=== PATIENT | female | born 1965 | race Hispanic/Latino ===

== ENCOUNTER → 2020-02-17 | Day surgery (SDC) | payer BC ==
[~2020-02-17] MED LIST: CLARITIN-D 241 EACH PO; ESTROGEN PO; FENTANYL CITRATE/PF 100MCG/2 ML INJ ONE; FISH OIL PO; GLUCAGON FOR INJ 1 MG VIAL ONE; HYOSCYAMINE 0.125 MG TAB ONE; LIDOCAINE HCL 2% LOCAL INJ 5 ML SDV VIAL INJ ONE; LISINOPRIL5 MG PO; MIDAZOLAM HCL 2 MG/2 ML VIAL ONE; PROPOFOL IV EMULSION 10 MG/ML 20 ML VIAL ONE
[2020-02-17 15:45] VITALS: BP 120/80
--- NOTE | 2020-02-17 18:38 | Operative Report ---
DATE OF PROCEDURE: 02/17/2020 SURGEON: Kody Yeboah MD PROCEDURES: EGD with polypectomy and biopsies and colonoscopy. INDICATIONS FOR EGD: Upper abdominal pain, bloating. INDICATIONS FOR COLONOSCOPY: Surveillance colonoscopy, personal history of colon polyps. MEDICATIONS: The patient was done under MAC, please see anesthesiologist's note. PROCEDURE IN DETAIL: With the patient in the left lateral decubitus position, a flexible fiberoptic Olympus gastroscope was introduced into the esophagus under direct visualization without any difficulty. There was some patchy erythema noted in distal esophagus. The scope was then advanced with ease into the stomach. Mucosa overlying the antrum and the body revealed some patchy erythema and [id number] edema, and biopsies were obtained and sent to stain for H. pylori. Several hyperplastic-appearing polyps were noted in the body of the stomach, some were partially excised with cold biopsy forceps. There was a minute submucosal nodule in the proximal body along the posterior wall and that was biopsied. Pylorus was of normal contour and shape, was intubated with ease and the scope was advanced all the way to the second portion of the duodenum. The scope was then withdrawn slowly. Biopsies were obtained from the proximal second portion and the duodenal bulb to rule out sprue. The scope was then withdrawn back into the stomach and retroflexed, and mucosa overlying the fundus and the cardia appeared to be within normal limits. The scope was then straightened out, it was subsequently withdrawn, and the patient tolerated the procedure well. IMPRESSION: 1. Distal esophagitis. 2. Gastritis, biopsied, biopsies sent to stain for Helicobacter pylori. 3. Gastric polyps, body, hyperplastic-appearing, some partially excised with the cold biopsy forceps. 4. Submucosal nodule, proximal body, posterior wall, biopsied. 5. Rule out sprue. PLAN: Follow up histology. Initiate Protonix 40 mg one p.o. q.a.m. before meals. The patient was then turned around and after adequate lubrication of the anal canal, a flexible fiberoptic Olympus colonoscope was inserted into the rectum with ease and advanced all the way to the cecum. It was then withdrawn slowly. Mucosa overlying the cecum, ascending colon, transverse colon, descending, sigmoid, and rectum appeared to be within normal limits. The scope was then retroflexed into the distal rectum and small internal hemorrhoids were noted, none of which was actively bleeding. The scope was then straightened out, it was subsequently withdrawn, and the patient tolerated the procedure well. IMPRESSION: Internal hemorrhoids, none actively bleeding. PLAN: Initiate high-fiber, low-fat diet. Initiate high-fiber supplement. The patient might benefit from a followup colonoscopy in 5 years. MD CHELLY Sprague/MODGill /[id number] cc: Dr. Zoila Leija
== END | disposition home or self-care (01) ==
LOC: OR 11:43
PROVIDERS: ATTEND Internal Medicine Gastroenterology
DX: K29.50 Unspecified chronic gastritis without bleeding (principal); Z86.010 Personal history of colon polyps; K31.7 Polyp of stomach and duodenum; K20.90 Esophagitis, unspecified without bleeding; K31.89 Other diseases of stomach and duodenum; K21.9 Gastro-esophageal reflux disease without esophagitis; K59.00 Constipation, unspecified; K64.8 Other hemorrhoids; Z01.810 Encounter for preprocedural cardiovascular examination; Z01.812 Encounter for preprocedural laboratory examination; Z20.828 Contact with and (suspected) exposure to other viral communicable diseases
CPT/HCPCS: 43239; 45378; 93005; J1610; J2001; J2250; J2704; J3010; U0002

== ENCOUNTER 2024-02-03 14:40 | Inpatient (IN) | payer BC ==
[~2024-02-03] VITALS: Ht 154.9 cm; Wt 56.2 kg
[2024-02-03 14:40] VITALS: TEMP 98
[~2024-02-03 14:40] MED LIST changes: -FENTANYL CITRATE/PF 100MCG/2 ML INJ ONE; -GLUCAGON FOR INJ 1 MG VIAL ONE; -HYOSCYAMINE 0.125 MG TAB ONE; -LIDOCAINE HCL 2% LOCAL INJ 5 ML SDV VIAL INJ ONE; -MIDAZOLAM HCL 2 MG/2 ML VIAL ONE; -PROPOFOL IV EMULSION 10 MG/ML 20 ML VIAL ONE
[2024-02-03] MEDS ORDERED: METOPROLOL TARTRATE INJ 1 MG/ML VIAL IV STA (15:07)
[2024-02-03] MEDS: DILTIAZEM HCL 5 MG/ML 5 ML VIAL IV STA (15:26)
[2024-02-03 15:36] LABS: BASOPHILS % 0.7 % (0.0-1.0); EOSINOPHILS # (AUTO) 0.2 (0.0-0.4); HEMATOCRIT 43.4 % (34.2-44.1); HEMOGLOBIN 13.4 g/dL (12.0-16.0); LYMPHOCYTES # (AUTO) 2.1 (1.0-3.2); LYMPHOCYTES % 36.7 % (18.0-39.1); MEAN CORPUSCULAR HEMOGLOBIN 29.4 pg (28-32); MEAN CORPUSCULAR HGB CONC 30.9 g/dL (31-35); MEAN CORPUSCULAR VOLUME 95.2 fL (81-99); MONOCYTES # (AUTO) 0.6 (0.2-0.8); MONOCYTES % 9.6 % (4.4-11.3); NEUTROPHILS # (AUTO) 2.9 (2.1-6.9); NEUTROPHILS % 49.7 % (38.7-80.0); PLATELET COUNT 339 x10e3/uL (140-360); RED BLOOD COUNT 4.56 x10e6/uL (3.6-5.1); RED CELL DISTRIBUTION WIDTH 13.5 % (11.7-14.4); WHITE BLOOD COUNT 5.75 x10e3/uL (4.8-10.8)
[2024-02-03] MEDS: DIGOXIN INJ 0.25 MG/ML 2 ML AMP IV STA (15:43)
[2024-02-03 16:01] LABS: ALBUMIN/GLOBULIN RATIO 1.1 (0.8-2.0); ANION GAP 15.8 mmol/L (8-16); BILIRUBIN,TOTAL 0.5 mg/dL (0.2-1.2); CALCIUM 9.6 mg/dL (8.4-10.2); CREATININE, SERUM 0.78 mg/dL (0.57-1.11); POTASSIUM 3.8 mmol/L (3.5-5.1); TOTAL PROTEIN 7.7 g/dL (6.5-8.1)
[2024-02-03] MEDS: SODIUM CHLORIDE 0.9% 1000ML 1,000 ML IV SCH (16:04)
[2024-02-03 16:08] LABS: TROPONIN I 0.001 ng/mL (0-0.300)
[2024-02-03 16:12] LABS: AMPHETAMINES SCREEN,URINE NEGATIVE (NEGATIVE); BENZODIAZEPINES SCREEN,URINE NEGATIVE (NEGATIVE); CANNABINOIDS SCREEN,URINE NEGATIVE (NEGATIVE); COCAINE SCREEN,URINE NEGATIVE (NEGATIVE); METHADONE SCREEN, URINE NEGATIVE (NEGATIVE); OPIATES SCREEN,URINE NEGATIVE (NEGATIVE); PHENCYCLIDINE SCREEN,URINE NEGATIVE (NEGATIVE)
[2024-02-03 16:48] VITALS: PULSE 87; RESP 18; O2SAT 98
[2024-02-03 21:30] VITALS: BP 120/69; PULSE 58; RESP 18; TEMP 97.7; O2SAT 98
[2024-02-03 21:33] VITALS: PULSE 64; RESP 17
[2024-02-03 22:40] VITALS: BP 120/69; PULSE 64; RESP 18; TEMP 97.7; O2SAT 98
[2024-02-03 22:51] VITALS: BP 120/69; PULSE 64; RESP 18; TEMP 97.7; O2SAT 98
[2024-02-03] MEDS ORDERED: CELECOXIB200 MG PO (23:12)
[2024-02-03] MEDS ORDERED: ALENDRONATE SOD70 MG PO (23:12)
[2024-02-04] VITALS (8 sets, daily range): BP systolic 116–131; BP diastolic 70–79; PULSE 58–65; RESP 18–21; TEMP 97.9–98.2; O2SAT 96–100
[2024-02-04 02:12] LABS: TROPONIN I 0.003 ng/mL (0-0.300)
[2024-02-04] MEDS: ENOXAPARIN SOD INJ 40 MG/0.4 ML SYR SC SCH (03:12)
[2024-02-04 05:16] LABS: BASOPHILS % 0.6 % (0.0-1.0); EOSINOPHILS # (AUTO) 0.2 (0.0-0.4); EOSINOPHILS % 3.6 % (0.0-6.0); HEMATOCRIT 37.7 % (34.2-44.1); HEMOGLOBIN 11.9 g/dL (12.0-16.0); LYMPHOCYTES # (AUTO) 2.1 (1.0-3.2); LYMPHOCYTES % 40.5 % (18.0-39.1); MEAN CORPUSCULAR HEMOGLOBIN 29.5 pg (28-32); MEAN CORPUSCULAR HGB CONC 31.6 g/dL (31-35); MEAN CORPUSCULAR VOLUME 93.3 fL (81-99); MONOCYTES # (AUTO) 0.5 (0.2-0.8); MONOCYTES % 9.2 % (4.4-11.3); NEUTROPHILS # (AUTO) 2.4 (2.1-6.9); NEUTROPHILS % 45.9 % (38.7-80.0); PLATELET COUNT 313 x10e3/uL (140-360); RED BLOOD COUNT 4.04 x10e6/uL (3.6-5.1); RED CELL DISTRIBUTION WIDTH 13.6 % (11.7-14.4); WHITE BLOOD COUNT 5.24 x10e3/uL (4.8-10.8)
[2024-02-04 05:51] LABS: ALBUMIN 3.3 g/dL (3.5-5.0); ALBUMIN/GLOBULIN RATIO 1.2 (0.8-2.0); ANION GAP 11.7 mmol/L (8-16); BILIRUBIN,TOTAL 0.5 mg/dL (0.2-1.2); CALCIUM 8.4 mg/dL (8.4-10.2); CREATININE, SERUM 0.74 mg/dL (0.57-1.11); POTASSIUM 3.7 mmol/L (3.5-5.1); TOTAL PROTEIN 6.1 g/dL (6.5-8.1)
[2024-02-04 06:21] LABS: TROPONIN I 0.003 ng/mL (0-0.300)
[2024-02-04] MEDS: ASPIRIN 81 MG CHEW TAB PO SCH (09:51)
[2024-02-04] MEDS: METOPROLOL TARTRATE 25 MG TAB PO SCH (09:51)
[2024-02-04 10:44] LABS: CHOL/HDL RATIO 5.4 (3.0-3.6)
[2024-02-04 10:58] LABS: THYROID STIMULATING HORMONE 1.063 uIU/mL (0.350-4.940)
[2024-02-04] MEDS: APIXABAN 5 MG TABLET PO SCH (12:33)
[2024-02-05] VITALS: BP 125/71; PULSE 62; RESP 18; TEMP 97.7; O2SAT 98
[2024-02-05 04:00] VITALS: BP 128/81; PULSE 63; RESP 18; TEMP 97.6; O2SAT 98
[2024-02-05 07:47] VITALS: BP 128/82; PULSE 73; RESP 20; TEMP 98.6; O2SAT 100
[2024-02-05 07:59] VITALS: BP 128/82; PULSE 73; RESP 20; TEMP 98.6; O2SAT 100
[2024-02-05] MEDS: ACETAMINOPHEN 325 MG TAB PO PRN (08:53)
[2024-02-05] MEDS ORDERED: AMIODARONE HCL 200 MG TAB PO SCH (11:30)
[2024-02-05 11:50] VITALS: BP 144/96; PULSE 62; RESP 17; TEMP 98.5; O2SAT 100
[2024-02-05] MEDS ORDERED: AMIODARONE HCL200 MG PO (12:37)
[2024-02-05] MEDS ORDERED: ELIQUIS5 MG PO (12:37)
[2024-02-05] MEDS ORDERED: TOPROL XL50 MG PO (12:37)
[2024-02-05] MEDS ORDERED: METOPROLOL SUCCINATE 50 MG TAB XL PO SCH (21:00)
== END 2024-02-05 13:45 | disposition home or self-care (01) | DRG 310 ==
LOC: ER 15:05 → ERHOLD 15:52 → MED/SURG 22:24
PROVIDERS: ADMIT Internal Medicine; ATTEND Internal Medicine
DX: I48.0 Paroxysmal atrial fibrillation (principal); R07.9 Chest pain, unspecified; R42 Dizziness and giddiness; I10 Essential (primary) hypertension; R73.03 Prediabetes; E04.1 Nontoxic single thyroid nodule; Z87.19 Personal history of other diseases of the digestive system; Z79.01 Long term (current) use of anticoagulants; Z79.899 Other long term (current) drug therapy
CPT/HCPCS: 36415; 71045; 80053; 80061; 80307; 82550; 83036; 83690; 83880; 84443; 84484; 85025; 93005; 93306; 94799; 99252; 99284; J1160; J1650; J7030